=== PATIENT | female | born 1985 | race Caucasian/White ===

== ENCOUNTER → 2019-02-03 | Outpatient (CLI) | payer BC | LOC: ZCOL.LAB 18:20 | DX: Z01.89 Encounter for other specified special examinations (principal) ==

== ENCOUNTER → 2022-02-03 | Outpatient (CLI) | payer BC | LOC: COL.RAD 12:02 | DX: M17.12 Unilateral primary osteoarthritis, left knee (principal) ==

== ENCOUNTER 2022-07-28 10:30 | Outpatient (RCR) | payer BC | END 2022-08-10 | disposition home or self-care (01) | LOC: WSC | DX: M17.0 Bilateral primary osteoarthritis of knee (principal); M76.62 Achilles tendinitis, left leg ==

== ENCOUNTER → 2023-01-08 | Outpatient (CLI) | payer BC | LOC: MHCPAIN 15:11 | DX: M35.7 Hypermobility syndrome (principal); M54.2 Cervicalgia; M77.9 Enthesopathy, unspecified; M79.7 Fibromyalgia | CPT/HCPCS: G0463 ==

== ENCOUNTER → 2023-07-07 | Outpatient (CLI) | payer BC | LOC: MHCPAIN 13:00 | DX: M25.511 Pain in right shoulder (principal); M35.7 Hypermobility syndrome; M79.7 Fibromyalgia; M77.9 Enthesopathy, unspecified; M54.50 Low back pain, unspecified | CPT/HCPCS: G0463 ==

== ENCOUNTER → 2023-11-11 | Outpatient (CLI) | payer BC | LOC: MHCPAIN 14:34 | DX: M54.50 Low back pain, unspecified (principal); M35.7 Hypermobility syndrome; M53.3 Sacrococcygeal disorders, not elsewhere classified | CPT/HCPCS: G0463 ==

== ENCOUNTER → 2023-11-23 | Outpatient (CLI) | payer BC | LOC: MHCPAIN 13:49 | DX: M54.50 Low back pain, unspecified (principal); M53.3 Sacrococcygeal disorders, not elsewhere classified; M51.36 Other intervertebral disc degeneration, lumbar region; M77.9 Enthesopathy, unspecified | CPT/HCPCS: G0463 ==